=== PATIENT | male | born 1960 | race Caucasian/White ===

== ENCOUNTER → 2017-06-29 | Outpatient (CLI) | payer OTHER ==
[~2017-06-29] MED LIST: ATOR10TA88 PO; HYDRTAB8 PO; NITR1CAP33 PO; TRVOPS OPB
--- NOTE | 2017-06-29 13:03 | DIAGNOSTIC IMAGING REPORT ---
[facility]UB CLINICAL HISTORY: 57 years-old Male presenting with N20.0 [id number]. TECHNIQUE: Single supine view of the abdomen was obtained. COMPARISON: 06/04/2016. FINDINGS: Bilateral nephrolithiasis with better visualization or new calculus at the lower pole of the right kidney. No calcifications along the courses of the ureters. Right ovary phlebolith unchanged. Nonobstructive bowel gas pattern. Osseous structures normal. IMPRESSION: 1. Bilateral nephrolithiasis with a potential new calculus at the lower pole the right kidney. Electronically signed by: Refugio Terry M.D. 06/29/2017 1:01 PM Dictated Date/Time: 06/29/2017 12:59 PM
== END | disposition home or self-care (01) ==
LOC: C.RAD 11:43
PROVIDERS: ATTEND Nurse Practitioner Adult Health
DX: N40.0 Benign prostatic hyperplasia without lower urinary tract symptoms (principal); N20.0 Calculus of kidney